=== PATIENT | male | born 1995 | race Caucasian/White ===

== ENCOUNTER → 2018-03-06 | Outpatient (CLI) | payer OTHER | LOC: M ADAMS 16:06 | DX: J20.9 Acute bronchitis, unspecified (principal) | CPT/HCPCS: 71046 ==

== ENCOUNTER 2018-05-18 23:47 | Emergency (ER) | payer SELFPAY, OTHER ==
[2018-05-19 00:39] LABS: KETONE, URINE AUTO RFX NEGATIVE (NEGATIVE); LEUKOCYTE ESTERASE UR AUTO RFX NEGATIVE (NEGATIVE); MUCUS, URINE RFX SMALL (NEGATIVE); NITRITE, URINE AUTO RFX NEGATIVE (NEGATIVE); RBC, URINE AUTO RFX 25 /HPF (0-3); SPECIFIC GRAVITY UR AUTO RFX 1.023 (1.002-1.035); SQUAM EPITHELIAL CELL UR AURFX 0 /HPF (0-6); WBC, URINE AUTO RFX 0 /HPF (0-3)
[2018-05-19] MEDS: NS 1,000 ML IV (00:45)
[2018-05-19 00:58] LABS: BASO % 0.2 % (0.0-1.0); EOS # 0.1 10^3/uL (0.0-0.50); EOS % 1.6 % (0.0-3.0); HEMATOCRIT 43.6 % (42.0-52.0); HEMOGLOBIN 15.2 g/dl (13.5-17.5); IMMATURE GRANULOCYTE % 0.1 % (0-3.0); LYMPH # 2.4 10^3/uL (1.5-6.5); LYMPH % 27.7 % (24.0-44.0); MEAN CORPUSCULAR HEMOGLOBIN 31.2 pg (27.0-33.0); MEAN CORPUSCULAR HGB CONC 34.9 g/dl (32.0-36.5); MEAN CORPUSCULAR VOLUME 89.5 fl (80.0-96.0); MONO # 0.7 10^3/uL (0.0-0.8); MONO % 8.2 % (0.0-5.0); NEUTROPHILS # 5.4 10^3/uL (1.8-7.7); NEUTROPHILS % 62.2 % (36.0-66.0); PLATELET COUNT, AUTOMATED 201 10^3/uL (150-450); RED BLOOD COUNT 4.87 10^6/uL (4.30-6.10); RED CELL DISTRIBUTION WIDTH 11.9 % (11.5-14.5); WHITE BLOOD COUNT 8.7 10^3/uL (4.0-10.0)
[2018-05-19 01:38] LABS: ALBUMIN 3.8 GM/DL (3.2-5.2); ALBUMIN/GLOBULIN RATIO 1.09 (1.00-1.93); ALKALINE PHOSPHATASE 70 U/L (45-117); ALT/SGPT 101 U/L (12-78); ANION GAP 7 MEQ/L (8-16); AST/SGOT 45 U/L (7-37); BILIRUBIN,DIRECT < 0.1 MG/DL (0.0-0.2); BILIRUBIN,TOTAL 0.2 MG/DL (0.2-1.0); BLOOD UREA NITROGEN 16 MG/DL (7-18); CALCIUM LEVEL 8.8 MG/DL (8.5-10.1); CARBON DIOXIDE LEVEL 27 MEQ/L (21-32); CHLORIDE LEVEL 107 MEQ/L (98-107); CREATININE FOR GFR 1.11 MG/DL (0.70-1.30); GLOMERULAR FILTRATION RATE > 60.0 (>60); GLUCOSE, FASTING 102 MG/DL (70-100); LIPASE 134 U/L (73-393); POTASSIUM SERUM 3.6 MEQ/L (3.5-5.1); SODIUM LEVEL 141 MEQ/L (136-145); TOTAL PROTEIN 7.3 GM/DL (6.4-8.2)
[2018-05-19 01:41] LABS: CONTROL LINE MONO INT CTR LINE PRESENT; MONO SCRN NEGATIVE (NEGATIVE)
== END 2018-05-19 02:15 | disposition home or self-care (01) ==
LOC: M ED 23:47
DX: R31.29 Other microscopic hematuria (principal); R10.9 Unspecified abdominal pain; J45.909 Unspecified asthma, uncomplicated; F32.9 Major depressive disorder, single episode, unspecified; Z84.1 Family history of disorders of kidney and ureter; Z88.1 Allergy status to other antibiotic agents; Z88.2 Allergy status to sulfonamides; Z79.899 Other long term (current) drug therapy
CPT/HCPCS: 74176

== ENCOUNTER → 2018-07-28 | Outpatient (CLI) | payer OTHER, SELFPAY ==
[2018-07-28 18:04] LABS: ALBUMIN 4.4 GM/DL (3.2-5.2); ALBUMIN/GLOBULIN RATIO 1.33 (1.00-1.93); ALKALINE PHOSPHATASE 61 U/L (45-117); ALT/SGPT 104 U/L (12-78); ANION GAP 6 MEQ/L (8-16); AST/SGOT 54 U/L (7-37); BILIRUBIN,TOTAL 0.6 MG/DL (0.2-1.0); BLOOD UREA NITROGEN 13 MG/DL (7-18); CALCIUM LEVEL 9.2 MG/DL (8.5-10.1); CARBON DIOXIDE LEVEL 30 MEQ/L (21-32); CHLORIDE LEVEL 106 MEQ/L (98-107); CHOLESTEROL LEVEL 164 MG/DL (<200); CHOLESTEROL RISK RATIO 3.346 (<5); CREATININE FOR GFR 0.96 MG/DL (0.70-1.30); GLOMERULAR FILTRATION RATE > 60.0 (>60); GLUCOSE, FASTING 84 MG/DL (70-100); HDL CHOLESTEROL 49 MG/DL (>40); LDL CHOLESTEROL 96.2 MG/DL (<100); NON-HDL-C 115 MG/DL; SODIUM LEVEL 142 MEQ/L (136-145); TOTAL PROTEIN 7.7 GM/DL (6.4-8.2); TRIGLYCERIDES LEVEL 94 MG/DL (<150)
== END ==
LOC: M WUC 10:15
DX: K76.0 Fatty (change of) liver, not elsewhere classified (principal); R94.5 Abnormal results of liver function studies
CPT/HCPCS: 80053

== ENCOUNTER 2018-10-25 09:52 | Emergency (ER) | payer OTHER | END 2018-10-25 10:56 | disposition home or self-care (01) | LOC: M ED 09:52 | DX: S89.92XA Unspecified injury of left lower leg, initial encounter (principal); Y92.89 Other specified places as the place of occurrence of the external cause; J45.909 Unspecified asthma, uncomplicated; F32.9 Major depressive disorder, single episode, unspecified; X50.0XXA Overexertion from strenuous movement or load, initial encounter | CPT/HCPCS: 73564 ==

== ENCOUNTER 2019-01-16 04:58 | Emergency (ER) | payer OTHER ==
[~2019-01-16] VITALS: Ht 175.3 cm; Wt 120.5 kg
[~2019-01-16 04:58] MED LIST: /CIPR75TA OR; ACET500C OR; BACT400T OR; CIPRODEX AD; CLAR5CHW OR; LORA10CA PO; NORCOTAB PO; PRED10TA2 OR; TUSSIN CF PO
--- NOTE | 2019-01-16 09:08 | REP ---
CT Head without contrast HISTORY: Trauma COMPARISON: 12/09/2014 There is no intraparenchymal hemorrhage, acute infarct, mass or midline shift. The ventricular system is normal in appearance. There is no extra cerebral collection. There is no fracture. The visualized sinuses are clear. IMPRESSION: There is no intracranial lesion. Electronically Signed by Mat Posey MD 01/16/2019 08:59 A
--- NOTE | 2019-01-16 09:12 | REP ---
CT cervical spine without contrast HISTORY: Trauma COMPARISON: None There is no acute fracture or subluxation. There is no disc bulge or herniation. The spinal canal and neural foramina are patent. The intervertebral discs and vertebral bodies are normal in height. IMPRESSION: There is no acute fracture or subluxation. Electronically Signed by Mat Posey MD 01/16/2019 09:03 A
--- NOTE | 2019-01-16 09:32 | REP ---
CT INTERNAL AUDITORY CANALS WITHOUT CONTRAST: HISTORY: Right hemotympanum. The internal auditory canals, cochlea, vestibules, and semicircular canals are normal in appearance. There is no carotid canal or jugular bulb dehiscence. The ossicles are normal in configuration and position. The scutum and tegmen are intact. The middle ear cavities and right mastoid air cells are clear. Minimal mucosal thickening is present in the inferior left mastoid air cells. The nasopharynx is normal in appearance. The visualized sinuses are clear. IMPRESSION: Minimal left mastoid mucosal thickening. Electronically Signed by Mat Posey MD 01/16/2019 10:05 A
[2019-01-16 09:39] VITALS: BP 118/62
== END 2019-01-16 09:43 | disposition home or self-care (01) ==
LOC: M ED 04:58
DX: S00.81XA Abrasion of other part of head, initial encounter (principal); W22.8XXA Striking against or struck by other objects, initial encounter; Y92.89 Other specified places as the place of occurrence of the external cause; Y99.0 Civilian activity done for income or pay; H74.8X1 Other specified disorders of right middle ear and mastoid; Z88.1 Allergy status to other antibiotic agents; Z88.2 Allergy status to sulfonamides; Z88.8 Allergy status to other drugs, medicaments and biological substances

== ENCOUNTER → 2019-04-09 | Outpatient (REF) | payer OTHER ==
[~2019-04-09] MED LIST changes: +HYDR-3715 PO; -NORCOTAB PO
[2019-04-09 19:24] LABS: ALBUMIN 3.8 GM/DL (3.2-5.2); ALT/SGPT 119 U/L (12-78); BILIRUBIN,TOTAL 0.3 MG/DL (0.2-1.0); BLOOD UREA NITROGEN 14 MG/DL (7-18); CALCIUM LEVEL 8.9 MG/DL (8.5-10.1); CARBON DIOXIDE LEVEL 29 MEQ/L (21-32); CHLORIDE LEVEL 104 MEQ/L (98-107); CREATININE FOR GFR 0.98 MG/DL (0.70-1.30); GLOMERULAR FILTRATION RATE > 60.0 (>60); GLUCOSE, FASTING 90 MG/DL (70-100); POTASSIUM SERUM 4.2 MEQ/L (3.5-5.1); SODIUM LEVEL 141 MEQ/L (136-145); TOTAL PROTEIN 7.4 GM/DL (6.4-8.2)
== END ==
LOC: M LABDRAW1 15:39
PROVIDERS: ATTEND Nurse Practitioner Family
DX: R94.5 Abnormal results of liver function studies (principal)

== ENCOUNTER → 2020-02-24 | Outpatient (REF) | payer OTHER | LOC: M LAB REF 19:11 | PROVIDERS: ATTEND Physician Assistant | DX: J02.9 Acute pharyngitis, unspecified (principal) ==

== ENCOUNTER → 2021-04-07 | Outpatient (CLI) | payer BC, OTHER ==
--- NOTE | 2021-04-08 07:28 | REP ---
INDICATION: RT TESTICULAR CALCIFICATION COMPARISON: 04/09/2019 TECHNIQUE: Negron scale and color Doppler evaluation using linear and curved array transducer with color Doppler evaluation. FINDINGS: The testicles and epididymi are relatively normal in contour, size, echogenicity, vascularity and overall appearance. Small bilateral epididymal head cysts are again noted measuring 2 mm on the right and 3 mm on the left. Small testicular calcifications (right greater than left) again noted and unchanged. There is no evidence for intratesticular mass lesion, infectious/inflammatory process, or torsion. No obvious hydroceles or varicoceles are identified. Right testicle measures 3.9 x 1.7 x 2.8 cm. Left testicle measures 4.2 x 1.6 x 2.5 cm. IMPRESSION: Right parenchymal calcification and smaller punctate calcifications remains stable. No testicular mass lesion. No significant abnormality. <Electronically signed by Sky Zaman > 04/08/21 0717
== END ==
LOC: M RAD 11:58
PROVIDERS: ATTEND Family Medicine
DX: N50.89 Other specified disorders of the male genital organs (principal)

== ENCOUNTER 2021-09-24 12:43 | Outpatient (CLI) | payer BC, OTHER ==
[~2021-09-24] VITALS: Ht 175.3 cm; Wt 117.9 kg
[~2021-09-24 12:43] MED LIST changes: +ALBUTEROL 90 MCG/ACT 8GM HFA INHALER INH PRN; +ALBUTEROL SULFATE 2.5 MG/0.5 ML INH NEB SOLN INH PRN; +EPINEPHrine INJ 1 MG/ML 1ML AMP IM PRN; +NS 1,000 ML IV SCH; +diphenhydrAMINE 50MG/ML VIAL (J1200) IV PRN; +methylPREDNISolone 125MG 2ML VIAL IV PRN
[2021-09-24] MEDS ORDERED: ACETAMINOPHEN TAB 650MG DOSE (2X325MG) PO ONE (13:00)
[2021-09-24] MEDS ORDERED: CASIRIVIMAB (REGN10933) 600 MG, IMDEVIMAB (REGN10987) 600 MG in NS 250 ML IV ONE (13:00)
[2021-09-24 13:50] VITALS: BP 125/66
[2021-09-24 14:20] VITALS: BP 141/64
[2021-09-24 15:00] VITALS: BP 127/62
[2021-09-24 16:00] VITALS: BP 138/62
== END 2021-09-24 16:00 | disposition home or self-care (01) ==
LOC: M OPCLI4PR 12:43
PROVIDERS: ATTEND Family Medicine
DX: U07.1 COVID-19 (principal); Z88.1 Allergy status to other antibiotic agents; Z88.2 Allergy status to sulfonamides

== ENCOUNTER 2021-09-25 20:49 | Emergency (ER) | payer BC, OTHER ==
[~2021-09-25] VITALS: Ht 175.3 cm; Wt 115.7 kg
[~2021-09-25 20:49] MED LIST changes: -ALBUTEROL 90 MCG/ACT 8GM HFA INHALER INH PRN; -ALBUTEROL SULFATE 2.5 MG/0.5 ML INH NEB SOLN INH PRN; -EPINEPHrine INJ 1 MG/ML 1ML AMP IM PRN; -NS 1,000 ML IV SCH; -diphenhydrAMINE 50MG/ML VIAL (J1200) IV PRN; -methylPREDNISolone 125MG 2ML VIAL IV PRN
[2021-09-25 20:50] VITALS: BP 137/95
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
--- OUTSIDE RECORDS SUMMARY | 2021-09-25 20:55 | CCD ---
Author Author [facility] Organization [facility] Address Unknown Phone Unavailable Care Team Providers Care Manager Digital Name Role Phone Wiliam ROBLES NP Unavailable Unavailable LAROCKWiliam NP Unavailable Unavailable LAROCKWiliam NP Unavailable Unavailable LAROCKWiliam NP Unavailable Unavailable LAROCKWiliam NP Unavailable Unavailable LAROCKWiliam NP Unavailable Unavailable LAROCKWiliam NP Unavailable Unavailable LAROCKWiliam NP Unavailable Unavailable LAROCKWiliam NP Unavailable Unavailable LAROCKWiliam NP Unavailable Unavailable LAROCKWiliam NP Unavailable Unavailable LAROCKWiliam NP Unavailable Unavailable LAROCKWiliam NP Unavailable Unavailable LAROCKWiliam NP Unavailable Unavailable LAROCKWiliam NP Unavailable Unavailable LAROCKWiliam NP Unavailable Unavailable LAROCKWiliam NP Unavailable Unavailable LAROCKWiliam NP Unavailable Unavailable LAROCKWiliam NP Unavailable Unavailable LAROCKWiliam NP Unavailable Unavailable LAROCKWiliam NP Unavailable Unavailable LAROCKWiliam NP Unavailable Unavailable Mike Thomas MD Unavailable Unavailable Mike Thomas MD Unavailable Unavailable Mike Thomas MD Unavailable Unavailable Mike Thomas MD Unavailable Unavailable Mike Thomas MD Unavailable Unavailable Mike Thomas MD Unavailable Unavailable Mike Thomas MD Unavailable Unavailable Mike Thomas MD Unavailable Unavailable Mike Thomas MD Unavailable Unavailable Mike Thomas MD Unavailable Unavailable Mike Thomas MD Unavailable Unavailable Mike Thomas MD Unavailable Unavailable Mike Thomas MD Unavailable Unavailable Mike Thomas MD Unavailable Unavailable Mike Thomas MD Unavailable Unavailable Mike Thomas MD Unavailable Unavailable Mike Thomas MD Unavailable Unavailable Mike Thomas MD Unavailable Unavailable Mike Thomas MD Unavailable Unavailable Mike Thomas MD Unavailable Unavailable Mike Thomas MD Unavailable Unavailable Mike Thomas MD Unavailable Unavailable Mike Thomas MD Unavailable Unavailable Mike Thomas MD Unavailable Unavailable Mike Thomas MD Unavailable Unavailable GinnyeranIsidro Em PA Unavailable [phone] HolleranIsidro Em PA Unavailable [phone] Coats, M Christopher PA-C Unavailable Unavailable Coats, M Christopher PA-C Unavailable Unavailable Coats, M Christopher PA-C Unavailable Unavailable Coats, M Christopher PA-C Unavailable Unavailable Coats, M Christopher PA-C Unavailable Unavailable Coats, M Christopher PA-C Unavailable Unavailable Coats, M Christopher PA-C Unavailable Unavailable Coats, M Christopher PA-C Unavailable Unavailable Coats, M Christopher PA-C Unavailable Unavailable Coats, M Christopher PA-C Unavailable Unavailable Coats, M Christopher PA-C Unavailable Unavailable Coats, M Christopher PA-C Unavailable Unavailable Coats, M Christopher PA-C Unavailable Unavailable Coats, M Christopher PA-C Unavailable Unavailable Coats, M Christopher PA-C Unavailable Unavailable Coats, M Christopher PA-C Unavailable Unavailable Coats, M Christopher PA-C Unavailable Unavailable Coats, M Christopher PA-C Unavailable Unavailable Coats, M Christopher PA-C Unavailable Unavailable Coats, M Christopher PA-C Unavailable Unavailable Coats, M Christopher PA-C Unavailable Unavailable Coats, M Christopher PA-C Unavailable Unavailable Coats, M Christopher PA-C Unavailable Unavailable Coats, M Christopher PA-C Unavailable Unavailable Coats, M Christopher PA-C Unavailable Unavailable Coats, M Christopher PA-C Unavailable Unavailable Re-disclosure Warning The records that you are about to access may contain information from federally-assisted alcohol or drug abuse programs. If such information is present, then the following federally mandated warning applies: This information has been disclosed to you from records protected by federal confidentiality rules (42 CFR part 2). The federal rules prohibit you from making any further disclosure of this information unless further disclosure is expressly permitted by the written consent of the person to whom it pertains or as otherwise permitted by 42 CFR part 2. A general authorization for the release of medical or other information is NOT sufficient for this purpose. The Federal rules restrict any use of the information to criminally investigate or prosecute any alcohol or drug abuse patient.The records that you are about to access may contain highly sensitive health information, the redisclosure of which is protected by Article 27-F of the [facility] Public Health law. If you continue you may have access to information: Regarding HIV / AIDS; Provided by facilities licensed or operated by the [facility] Office of Mental Health; or Provided by the [facility] Office for People With Developmental Disabilities. If such information is present, then the following [facility] mandated warning applies: This information has been disclosed to you from confidential records which are protected by state law. State law prohibits you from making any further disclosure of this information without the specific written consent of the person to whom it pertains, or as otherwise permitted by law. Any unauthorized further disclosure in violation of state law may result in a fine or senior care sentence or both. A general authorization for the release of medical or other information is NOT sufficient authorization for further disc losure. Family History Family Member Name Family Member Gender Family Member Status Date o f Status Description Data Source(s) Unknown Unknown Problem MEDENT ([facility]) Unknown Unknown Problem MEDENT ([facility]) Unknown Male Problem MEDENT ([facility]) Unknown Male Problem MEDENT ([facility]) Encounters Encounter Providers Location Date Indications Data Source(s ) Unknown [address] [facility] [address] 09/21/2021 12:00:00 AM EDT eCW1 (formerly [facility]) Outpatient Attender: Em DENSON 11/2020 10:35:13 AM EDT - 09/20/2021 12:10:29 PM EDT [facility] ([facility]) Outpatient Attender: Tawana Thomas MD 1 04:45:37 PM EDT - 08/21/2021 06:06:38 PM EDT [facility] ([facility]) Outpatient Attender: Thanh Coats PA-C 07/07/2021 04:54:02 PM EDT - 07/07/2021 05:47:37 PM EDT [facility] ([facility]) Unknown [address] [facility] [address] 06/15/2021 12:00:00 AM EDT eCW1 (formerly [facility]) Outpatient [address] [facility] [address] 05/03/2021 12:00:00 AM EDT eCW1 (formerly [facility]) Unknown [address] [facility] [address] 04/26/2021 12:00:00 AM EDT eCW1 (formerly [facility]) Outpatient [address] [facility] [address] 03/09/2021 12:00:00 AM EDT eCW1 (formerly [facility]) Outpatient Attender: MARCELINO ROBLES NP 05/2021 10:11:54 AM EST - 12/27/2020 11:11:12 AM EST [facility] ([facility] ) Outpatient [address] [facility] [address] 12/15/2020 12:00:00 AM EST eCW1 (formerly [facility]) Outpatient [address] [facility] [address] 09/02/2020 12:00:00 AM EDT eCW1 (formerly [facility]) Immunizations Vaccine Date Status Description Data Source(s) influenza, recombinant, quadrIvalent,injectable, prese rvative free 09/02/2020 03:47:00 PM EDT completed eCW1 ([facility]) influenza, recombinant, quadrIvalent,injectable, prese rvative free 09/02/2020 03:47:00 PM EDT completed eCW1 ([facility]) influenza, recombinant, quadrIvalent,injectable, prese rvative free 09/02/2020 03:47:00 PM EDT completed eCW1 ([facility]) influenza, recombinant, quadrIvalent,injectable, prese rvative free 09/02/2020 03:47:00 PM EDT completed eCW1 ([facility]) influenza, recombinant, quadrIvalent,injectable, prese rvative free 09/02/2020 03:47:00 PM EDT completed eCW1 ([facility]) influenza, recombinant, quadrIvalent,injectable, prese rvative free 09/02/2020 03:47:00 PM EDT completed eCW1 ([facility]) influenza, recombinant, quadrIvalent,injectable, prese rvative free 09/02/2020 03:47:00 PM EDT completed eCW1 ([facility]) Medications Medication Brand Name Start Date Product Form Dose Route Admi nistrative Instructions Pharmacy Instructions Status Indications Reaction Description Data Source(s) Cyclobenzaprine hydrochloride 10 MG Oral Tablet CYCLOBENZAPR INE HCL 07/07/2021 12:00:00 AM EDT tablet 21 TAKE ONE TABLET BY MOUTH THREE TIMES A DAY NEEDED FOR 7 DAYS TAKE ONE TABLET BY MOUTH THREE TIMES A DAY NEEDED F OR 7 DAYS SOLD: 07/07/2021 [facility] 875 mg 12/12/2020 12:00:00 AM EST tablet 20 TAKE ONE TABLET BY MOUTH TWICE A DAY FOR 10 DAYS TAKE ONE TABLET BY MOUTH TWICE A DAY FOR 10 DAYS SOLD: 12/12/2020 [facility] Insurance Providers Payer name Policy type / Coverage type Policy ID Covered republican ID Covered republican's relationship to ochoa Policy O[place] Plan Information [id number] [facility] AMY [id number] [employer] Workers Compensation [id number] Self [id number] [employer] Workers Compensation [id number] Self [id number] [facility] Workers Compensation [id number] Self [id number] [facility]) Workers Compensation [id number] Self 7 [facility] Workers Compensation [id number] Self [id number] [facility] Workers Compensation [id number] Self 7 [facility]) Workers Compensation [id number] Self 7 [facility] Workers Compensation [id number] Self [id number] [facility]) Workers Compensation [id number] Self [id number] [facility]) Workers Compensation [id number] Self [id number] [facility] [employer] [id number] Self [id number] [facility] Commercial Insurance Co. [id number] Self [id number] [facility] [id number] SP [id number] BS CHP (DO Not Use) Health Maintenance Organization ([facility]) [id number] Family Dependent Z [id number] BS CHP (DO Not Use) Health [facility] Organization ([facility]) [id number] Family Dependent Z [id number] [employer] Health Maintenance Organization ([facility]) [id number] Self [id number] [employer] Health Maintenance Organization ([facility]) [id number] Family Dependent [id number] [employer] [id number] SP [id number] BS CHP (DO Not Use) Health Maintenance Organization ([facility]) [id number] Family Dependent Z [id number] BS CHP (DO Not Use) Health [facility] Organization ([facility]) [id number] Family Dependent Z [id number] BS CHP (DO Not Use) Health Maintenance Organization ([facility]) [id number] Family Dependent Z [id number] BS CHP (DO Not Use) Health Maintenance Organization ([facility]) [id number] Family Dependent Z [id number] [employer] O [id number] S [id number] OTHER W.C.EMPLOYER O [id number] O [id number] [employer] [id number] SP [id number] [facility] [id number] SP [id number] UN COMMUNITY PL[employer] [facility] [id number] SP [id number] SELF PAY ONLY [id number] SP [id number] [facility]) O [id number] S [id number] [facility] Maintenance Organization ([facility]) [id number] Self [id number] [facility] Health Maintenance [facility] ([facility]) [id number] Self [id number] [facility] [id number] SP [id number] [facility] [id number] SP [id number] [facility] PHY [id number] SP [id number] EXCELLUS BCBS P [id number] C VYB [id number] BC/BS OF [place] P [id number] C VY [id number] [facility] Health Maintenance Organization ([facility]) [id number] Self [id number] BC[employer] DIV [id number] SP [id number] [facility] BLUE [id number] SP [id number] [facility] [id number] SP [id number] [facility] [id number] SP [id number] [facility] [id number] SP [id number] MVP MCDO [id number] SP [id number] BS CHP (DO Not Use) Health Maintenance Organization (O) [id number] Family Dependent [id number] MV Health Maintenance Organization (O) [id number] Self [id number] MVP Health Maintenance Organization (HMO) [id number] Family Dependent [id number] [employer] [id number] Self [id number] BS CHP (DO Not Use) Health Maintenance Organization (HMO) [id number] Family Dependent [id number] [facility] INSURANCE FUND [id number] [employer] Commercial [id number] Self [id number] Problems, Conditions, and Diagnoses Code Display Name Description Problem Type Effective Dates Data Source(s) J35.8 [id number] Tonsil stone Problem 03/09/2021 12:00:00 AM EDT eCW1 ([facility]) Surgeries/Procedures Procedure Description Date Indications Data Source(s) Immunization: Flublok Quadrivalent (18 years & older) 0.5mL IM (Influenza) 09/02/2020 12:00:00 AM EDT eCW1 ([facility]) Results ID Date Data Source [id number] 09/20/2021 10:45:00 AM EDT [facility] Name Value Range Interpretation Code Description Data Shaye rce(s) Supporting Document(s) SARS-CoV-2 RNA Resp Ql JASPER+probe DETECTED [facility] This lab was ordered by SAGRARIO haskins and reported by SAGRARIO Walker. ID Date Data Source [id number] 09/17/2021 01:00:00 PM EDT [facility] Name Value Range Interpretation Code Description Data Shaye rce(s) Supporting Document(s) SARS coronavirus 2 RNA [Presence] in Res piratory specimen by JASPER with probe detection Not detected [facility] This lab was ordered by [facility] and re ported by [facility]. ID Date Data Source [id number] 09/19/2021 02:45:00 AM EDT [employer] [facility] Name Value Range Interpretation Code Description Data Shaye rce(s) Supporting Document(s) [id number] NOT DETECTED [facility] A Not Detected (negative) test result fo r this testmeans that SARS- CoV-2 RNA was not present in the specimenabove the limit of detection. A negative result does notrule out the possibility of COVID-19 and should not beused as the sole basis for treatment or patient managementdecisions. If COVID-19 is still suspected, based onexposure history together with other clinical findings,re- testing should be considered [facility]. Laboratory test results shouldalways be considered in the context of clinicalobservations and epidemiological data in making a finaldiagnosis and patient management decisions.Specimens that are self-collected were not tested withan internal control to confirm that the specimen wasproperly collected. As such, unobserved self-collectedspecimens from SARS-CoV-2 positive individuals may yieldnegative results if the specimen was not collected properly.Please review the "Fact Sheets" and FDA authorizedlabeling available for health care pr oviders andpatients using the following websites:[facility]/home/Covid-19/HCP/lu-futq-rrhi-wnnvj0UrjqaGmrlfmey ics.[employer]/home/Covid-19/Patients/vg-akjp-ujnf-radfn0Cwas test has been authorized by the FDA under anEmergency Use Authorization (EUA) for use by authorizedlaboratories.Methodology: Nucleic Acid Amplification Test (NAAT)includes RT-PCR or TMA ID Date Data Source [id number] 09/17/2021 06:00:00 AM [facility] Name Value Range Interpretation Code Description Data Shaye rce(s) Supporting Document(s) SARS-COV-2 RNA RESP QL JASPER+PROBE Not detected [facility] This lab was ordered by [facility] Employee Cov id and reported by [employer] [place]. ID Date Data Source [id number] 09/10/2021 07:00:00 AM EDT [facility] Name Value Range Interpretation Code Description Data Shaye rce(s) Supporting Document(s) SARS coronavirus 2 RNA [Presence] in Res piratory specimen by JASPER with probe detection Not detected [facility] This lab was ordered by [facility] and re ported by [facility]. ID Date Data Source [id number] 09/10/2021 12:00:00 AM EDT [facility] Name Value Range Interpretation Code Description Data Shaye rce(s) Supporting Document(s) SARS-COV-2 RNA RESP QL JASPER+PROBE Not detected [facility] This lab was ordered by [facility] Employee Cov id and reported by [employer] [place]. ID Date Data Source [id number] 09/12/2021 12:56:00 PM EDT [facility] Name Value Range Interpretation Code Description Data Shaye rce(s) Supporting Document(s) [id number] NOT DETECTED [facility] A Not Detected (negative) test result fo r this testmeans that SARS- CoV-2 RNA was not present in the specimenabove the limit of detection. A negative result does notrule out the possibility of COVID-19 and should not beused as the sole basis for treatment or patient managementdecisions. If COVID-19 is still suspected, based onexposure history together with other clinical findings,re- testing should be considered [facility]. Laboratory test results shouldalways be considered in the context of clinicalobservations and epidemiological data in making a finaldiagnosis and patient management decisions.Specimens that are self-collected were not tested withan internal control to confirm that the specimen wasproperly collected. As such, unobserved self-collectedspecimens from SARS-CoV-2 positive individuals may yieldnegative results if the specimen was not collected properly.Please review the "Fact Sheets" and FDA authorizedlabeling available for health care pr oviders andpatients using the following websites:[facility] [employer]/home/Covid-19/HCP/fe-ifkr-pjar-iocqc5NtfctZtobwpbk ics.[employer]/home/Covid-19/Patients/xh-lsyi-aids-tncph1Wwtw test has been authorized by the FDA under anEmergency Use Authorization (EUA) for use by authorizedlaboratories.Methodology: Nucleic Acid Amplification Test (NAAT)includes RT-PCR or TMA ID Date Data Source [id number] 08/21/2021 05:45:00 PM EDT [facility] Name Value Range Interpretation Code Description Data Shaye rce(s) Supporting Document(s) SARS-CoV-2 RNA Resp Ql JASPER+probe NOT DETECTED [facility] This lab was ordered by SAGRARIO haskins and reported by SAGRARIO Walker. ID Date Data Source [id number] 12/27/2020 12:00:00 AM EST [facility] Name Value Range Interpretation Code Description Data Shaye rce(s) Supporting Document(s) SARS coronavirus 2 RNA [Presence] in Res piratory specimen by JASPER with probe detection NEGATIVE [facility] This lab was ordered by Aaron Cobb and reported by [facility]. ID Date Data Source [id number] 12/27/2020 12:00:00 AM EST [facility] Name Value Range Interpretation Code Description Data Shaye rce(s) Supporting Document(s) Carestart Rapid COVID Antigen Test Negative [facility] This lab was reported by [facility] [place]. Procedure Social History Code Duration Value Status Description Data Source(s ) Smoking 09/06/2021 12:00:00 AM EDT Never Smoker completed Never S moker eCW1 ([facility]) Smoking 05/03/2021 12:00:00 AM EDT Never Smoker completed Never S moker eCW1 ([facility]) Smoking 05/03/2021 12:00:00 AM EDT Never Smoker completed Never S moker eCW1 ([facility]) Smoking 03/09/2021 12:00:00 AM EDT Never Smoker completed Never S moker eCW1 ([facility]) Smoking 03/09/2021 12:00:00 AM EDT Never Smoker completed Never S moker eCW1 ([facility]) Smoking 12/15/2020 12:00:00 AM EST Never Smoker completed Never S moker eCW1 ([facility]) Smoking 09/02/2020 12:00:00 AM EDT Never Smoker completed Never S moker eCW1 ([facility]) Vital Signs ID Date Data Source UNK Name Value Range Interpretation Code Description Data Source(s) Body weight 250 [lb_av] 250 [lb_av] eCW1 ([facility]) Body height 69 [in_i] 69 [in_i] eCW1 ([facility]) Body mass index (BMI) [Ratio] 36.91 kg/m2 36.91 kg/m2 eCW1 ([facility]) Heart rate 65 /min 65 /min eCW1 ([facility]) Respiratory rate 18 /min 18 /min eCW1 ([facility]) Body temperature 97.0 [degF] 97.0 [degF] eCW1 ( [facility]) Systolic blood pressure 133 mm[Hg] 133 mm[Hg] e CW1 ([facility]) Diastolic blood pressure 65 mm[Hg] 65 mm[Hg] eCW1 ([facility]) Body mass index (BMI) [Ratio] 37.65 kg/m2 37.65 kg/m2 eCW1 ([facility]) Body weight 255 [lb_av] 255 [lb_av] eCW1 ([facility]) Body height 69 [in_i] 69 [in_i] eCW1 ([facility]) Heart rate 83 /min 83 /min eCW1 ([facility]) Respiratory rate 17 /min 17 /min eCW1 ([facility]) Body temperature 97.9 [degF] 97.9 [degF] eCW1 ( [facility]) Systolic blood pressure 121 mm[Hg] 121 mm[Hg] e CW1 ([facility]) Diastolic blood pressure 81 mm[Hg] 81 mm[Hg] eCW1 ([facility]) Body weight 269 [lb_av] 269 [lb_av] eCW1 ([facility]) Body height 69 [in_i] 69 [in_i] eCW1 ([facility]) Body mass index (BMI) [Ratio] 39.72 kg/m2 39.72 kg/m2 eCW1 ([facility]) Heart rate 76 /min 76 /min eCW1 ([facility]) Respiratory rate 16 /min 16 /min eCW1 ([facility]) Body temperature 97.5 [degF] 97.5 [degF] eCW1 ( [facility]) Systolic blood pressure 148 mm[Hg] 148 mm[Hg] e CW1 ([facility]) Diastolic blood pressure 77 mm[Hg] 77 mm[Hg] eCW1 ([facility]) Body weight 245 [lb_av] 245 [lb_av] eCW1 ([facility]) Respiratory rate 18 /min 18 /min eCW1 ([facility]) Body height 69 [in_i] 69 [in_i] eCW1 ([facility]) Body temperature 97.6 [degF] 97.6 [degF] eCW1 ( [facility]) Systolic blood pressure 133 mm[Hg] 133 mm[Hg] e CW1 ([facility]) Diastolic blood pressure 81 mm[Hg] 81 mm[Hg] eCW1 ([facility]) Body mass index (BMI) [Ratio] 36.18 kg/m2 36.18 kg/m2 eCW1 ([facility]) Heart rate 91 /min 91 /min eCW1 ([facility])
--- OUTSIDE RECORDS SUMMARY | 2021-09-26 00:33 | CCD ---
Author Author [facility] Organization [facility] Address Unknown Phone Unavailable Care Team Providers Care Medical Technician Assistant Name Role Phone Wiliam ROBLES NP Unavailable [...] MD Unavailable Unavailable GinnyeranIsidro Em PA Unavailable [phone] HolleranIsidro Em PA Unavailable [phone] Coats, M Christopher PA-C Unavailable Unavailable Coats, [...] Unavailable Coats, M Christopher PA-C Unavailable Unavailable Cotas, M Christopher PA-C Unavailable Unavailable Coats, M [...] is protected by Article 27-F of the [facility] Public Health law. If you continue you may have access to information: Regarding HIV / AIDS; Provided by facilities licensed or operated by the [facility] Office of Mental Health; or Provided by the [facility] Office for People With Developmental Disabilities. If such information is present, then the following [facility] mandated warning applies: This information has been [...] law may result in a fine or alf sentence or both. A general authorization for the release of medical or other information is NOT sufficient authorization for further disc losure. Family History Family Member Name Family Member Gender Family Member Status Date o f Status Description Data Source(s) Unknown Unknown Problem MEDENT ([facility]) Unknown Unknown Problem MEDENT ([facility]) Unknown Male Problem MEDENT ([facility]) Unknown Male Problem MEDENT ([facility]) Encounters Encounter Providers Location Date Indications Data Source(s ) [place] [address] [address] 09/21/2021 12:00:00 AM EDT eCW1 ([facility]) Outpatient Attender: Em DENSON 11/2020 10:35:13 AM EDT - 09/20/2021 12:10:29 PM EDT [facility] ([facility]) Outpatient Attender: Tawana Thomas MD 1 04:45:37 PM EDT - 08/21/2021 06:06:38 PM EDT [facility] ([facility]) Outpatient Attender: Thanh Coats PA-C 07/07/2021 04:54:02 PM EDT - 07/07/2021 05:47:37 PM EDT [facility] ([facility]) [place] [address] [address] 06/15/2021 12:00:00 AM EDT eCW1 ([facility]) [place] [address] [address] 05/03/2021 12:00:00 AM EDT eCW1 ([facility]) [place] [address] [address] 04/26/2021 12:00:00 AM EDT eCW1 ([facility]) [place] [address] [address] 03/09/2021 12:00:00 AM EDT eCW1 ([facility]) Outpatient Attender: MARCELINO ROBLES NP 05/2021 10:11:54 AM EST - 12/27/2020 11:11:12 AM EST [facility] ([facility] ) [place] [address] [address] 12/15/2020 12:00:00 AM EST eCW1 ([facility]) [place] [address] [address] 09/02/2020 12:00:00 AM EDT eCW1 ([facility]) Immunizations Vaccine Date Status Description Data Source(s) influenza, recombinant, quadrIvalent,injectable, prese rvative free 09/02/2020 03:47:00 PM EDT completed eCW1 ([facility]) influenza, recombinant, quadrIvalent,injectable, prese rvative free 09/02/2020 03:47:00 PM EDT completed eCW1 ([facility]) influenza, recombinant, quadrIvalent,injectable, prese rvative free 09/02/2020 03:47:00 PM EDT completed eCW1 ([facility]) influenza, recombinant, quadrIvalent,injectable, prese rvative free 09/02/2020 03:47:00 PM EDT completed eCW1 ([facility]) influenza, recombinant, quadrIvalent,injectable, prese rvative free 09/02/2020 03:47:00 PM EDT completed eCW1 ([facility]) influenza, recombinant, quadrIvalent,injectable, prese rvative free 09/02/2020 03:47:00 PM EDT completed eCW1 ([facility]) influenza, recombinant, quadrIvalent,injectable, prese rvative free 09/02/2020 03:47:00 PM EDT completed eCW1 ([facility]) Medications Medication Brand Name Start Date Product [...] type / Coverage type Policy ID Covered democrat ID Covered democrat's relationship to ochoa Policy Ochoa Plan Information [id number] [facility] [place] [id number] [employer] Compensation [id number] Self [id number] [employer] Workers Compensation [id number] Self [id number] [facility] Workers Compensation [id number] Self [id number] [facility]) Workers Compensation [id number] Self 7 [facility] Workers Compensation [id number] Self [id number] [facility] Workers Compensation [id number] Self 7 [facility]) Workers Compensation [id number] Self 7 [facility] Workers Compensation [id number] Self [id number] [facility]) Workers Compensation [id number] Self [id number] [facility]) Workers Compensation [id number] Self [id number] [facility] [employer]. [id number] Self [id number] [facility] Commercial Insurance Co. [id number] Self [id number] [facility] [id number] SP [id number] BS CHP (DO Not Use) Health Maintenance Organization ([facility] [id number] Family Dependent Z [id number] BS CHP (DO Not Use) Health [facility] Organization ([facility] [id number] Family Dependent Z [id number] [facility] Health Maintenance Organization ([facility] [id number] Self [id number] [facility] Health Maintenance Organization ([facility] [id number] Family Dependent [id number] [employer] [id number] SP [id number] BS CHP (DO Not Use) Health Maintenance Organization ([facility] [id number] Family Dependent Z [id number] BS CHP (DO Not Use) Health [facility] Organization ([facility] [id number] Family Dependent Z [id number] BS CHP (DO Not Use) Health Maintenance Organization ([facility] [id number] Family Dependent Z [id number] BS CHP (DO Not Use) Health Maintenance Organization ([facility] [id number] Family Dependent Z [id number] [employer] O [id number] S [id number] OTHER W.C.EMPLOYER O [id number] O [id number] [employer] [id number] SP [id number] MVP [facility] [id number] SP [id number] [employer] [facility] [id number] SP [id number] SELF PAY ONLY [id number] SP [id number] [facility](MCA[facility]) O [id number] S [id number] [facility]ly [facility] Maintenance Organization ([facility]) [id number] Self [id number] [facility] Health Maintenance [facility] ([facility]) [id number] Self [id number] [facility] [id number] SP [id number] [facility] [id number] SP [id number] [facility] PHY [id number] SP [id number] EXCELLUS BCBS P [id number] C [id number] [id number] BC/BS OF [place] P [id number] C VY [id number] [facility] Health Maintenance Organization ([facility] [id number] Self [id number] BCBS EMPIRE [employer] DIV [id number] SP [id number] [facility] BLUE [id number] SP [id number] [facility] [id number] SP [id number] [facility] [id number] SP [id number] [facility] [id number] SP [id number] MVP MCDO [id number] SP [id number] BS CHP (DO Not Use) Health Maintenance Organization (O) [id number] Family Dependent [id number] MV Health Maintenance Organization (O) [id number] Self [id number] MVP Health Maintenance Organization (HMO) [id number] Family Dependent [id number] [employer] Commercial [id number] Self [id number] BS CHP (DO Not Use) Health Maintenance Organization (HMO) [id number] Family Dependent [id number] [facility]LY [facility] INSURANCE FUND [id number] [facility] Commercial [id number] Self [id number] Problems, Conditions, and Diagnoses Code Display Name Description Problem Type Effective Dates Data Source(s) J35.8 [id number] Tonsil stone Problem 03/09/2021 12:00:00 AM EDT eCW1 ([facility]) Surgeries/Procedures Procedure Description Date Indications Data Source(s) Immunization: Flublok Quadrivalent (18 years & older) 0.5mL IM (Influenza) 09/02/2020 12:00:00 AM EDT eCW1 ([facility]) Results ID Date Data Source [id number] 09/20/2021 10:45:00 AM EDT [facility] Name Value Range Interpretation Code Description Data Shaye rce(s) Supporting Document(s) SARS-CoV-2 RNA Resp Ql JASPER+probe DETECTED [facility] This lab was ordered by SAGRARIO haskins and reported by SAGRARIO Walker. ID Date Data Source [id number] 09/17/2021 01:00:00 PM EDT [facility] Name Value Range Interpretation Code Description Data Shaye rce(s) Supporting Document(s) SARS coronavirus 2 RNA [Presence] in Res piratory specimen by JASPER with probe detection Not detected [facility] This lab was ordered by [facility] and re ported by [facility]. ID Date Data Source [id number] 09/19/2021 02:45:00 AM EDT [facility] Name Value Range Interpretation Code Description Data Shaye rce(s) Supporting Document(s) [id number] NOT DETECTED [facility] A Not Detected [...] findings,re- testing should be considered in [facility]. Laboratory test results shouldalways [...] care pr oviders andpatients using the following websites:[facility]/home/Covid-19/HCP/mh-itxk-rbtc-ftirz7NudrlOhgjmndx ics.[employer]/home/Covid-19/Patients/ct-fppv-ipbe-ocsbe1Qmdf test has been authorized by the FDA under anEmergency Use Authorization (EUA) for use by authorizedlaboratories.Methodology: Nucleic Acid Amplification Test (NAAT)includes RT-PCR or TMA ID Date Data Source [id number] 09/17/2021 06:00:00 AM [facility]T [facility] Name Value Range Interpretation Code Description Data Shaye rce(s) Supporting Document(s) SARS-COV-2 RNA RESP QL JASPER+PROBE Not detected [facility] This lab was ordered by [employer] Employee Cov id and reported by Hunie [place]. ID Date Data Source [id number] 09/10/2021 07:00:00 AM EDT [facility] Name Value Range Interpretation Code Description Data Shaye rce(s) Supporting Document(s) SARS coronavirus 2 RNA [Presence] in Res piratory specimen by JASPER with probe detection Not detected [facility] This lab was ordered by [facility] and re ported by [facility]. ID Date Data Source [id number] 09/10/2021 12:00:00 AM EDT [facility] Name Value Range Interpretation Code Description Data Shaye rce(s) Supporting Document(s) SARS-COV-2 RNA RESP QL JASPER+PROBE Not detected [facility] This lab was ordered by [facility] [employer] Employee Cov id and reported by Hunie [place]. ID Date Data Source [id number] 09/12/2021 12:56:00 PM EDT [facility] Name Value Range Interpretation Code Description Data Shaye rce(s) Supporting Document(s) [id number] NOT DETECTED [facility] A Not Detected [...] findings,re- testing should be considered [facility]. Laboratory test results shouldalways [...] care pr oviders andpatients using the following websites:[facility] [employer]/home/Covid-19/HCP/vj-asof-hgww-gfseq7LijipNytniytu ics.[employer]/home/Covid-19/Patients/jf-gowd-hnhy-xifcg9Kxcy test has been authorized by the FDA under anEmergency Use Authorization (EUA) for use by authorizedlaboratories.Methodology: Nucleic Acid Amplification Test (NAAT)includes RT-PCR or TMA ID Date Data Source [id number] 08/21/2021 05:45:00 PM EDT [facility] Name Value Range Interpretation Code Description Data Shaye rce(s) Supporting Document(s) SARS-CoV-2 RNA Resp Ql JASPER+probe NOT DETECTED [facility] This lab was ordered by SAGRARIO haskins and reported by SAGRARIO Walker. ID Date Data Source [id number] 12/27/2020 12:00:00 AM EST [facility] Name Value Range Interpretation Code Description Data Shaye rce(s) Supporting Document(s) SARS coronavirus 2 RNA [Presence] in Res piratory specimen by JASPER with probe detection NEGATIVE [facility] This lab was ordered by Aaron Cobb and reported by [employer]. ID Date Data Source [id number] 12/27/2020 12:00:00 AM EST [facility] Name Value Range Interpretation Code Description Data Shaye rce(s) Supporting Document(s) Carestart Rapid COVID Antigen Test Negative [facility] This lab was reported by Aaron [place]. Procedure Social History Code Duration Value Status Description Data Source(s ) Smoking 09/06/2021 12:00:00 AM EDT Never Smoker completed Never S moker eCW1 ([facility]) Smoking 05/03/2021 12:00:00 AM EDT Never Smoker completed Never S moker eCW1 ([facility]) Smoking 05/03/2021 12:00:00 AM EDT Never Smoker completed Never S moker eCW1 ([facility]) Smoking 03/09/2021 12:00:00 AM EDT Never Smoker completed Never S moker eCW1 ([facility]) Smoking 03/09/2021 12:00:00 AM EDT Never Smoker completed Never S moker eCW1 ([facility]) Smoking 12/15/2020 12:00:00 AM EST Never Smoker completed Never S moker eCW1 ([facility]) Smoking 09/02/2020 12:00:00 AM EDT Never Smoker completed Never S moker eCW1 ([facility]) Vital Signs ID Date Data Source [id number] Name Value Range Interpretation Code Description Data Source(s) Body weight 250 [lb_av] 250 [lb_av] eCW1 ([facility]) Body height 69 [in_i] 69 [in_i] eCW1 ([facility]) Body mass index (BMI) [Ratio] 36.91 kg/m2 36.91 kg/m2 eCW1 ([facility]) Heart rate 65 /min 65 /min eCW1 ([facility]) Respiratory rate 18 /min 18 /min eCW1 ([facility]) Body temperature 97.0 [degF] 97.0 [degF] eCW1 ( [facility]) Systolic blood pressure 133 mm[Hg] 133 mm[Hg] e CW1 ([facility]) Diastolic blood pressure 65 mm[Hg] 65 mm[Hg] eCW1 ([facility]) Body mass index (BMI) [Ratio] 37.65 kg/m2 37.65 kg/m2 eCW1 ([facility]) Body weight 255 [lb_av] 255 [lb_av] eCW1 ([facility]) Body height 69 [in_i] 69 [in_i] eCW1 ([facility]) Heart rate 83 /min 83 /min eCW1 ([facility]) Respiratory rate 17 /min 17 /min eCW1 ([facility]) Body temperature 97.9 [degF] 97.9 [degF] eCW1 ( [facility]) Systolic blood pressure 121 mm[Hg] 121 mm[Hg] e CW1 ([facility]) Diastolic blood pressure 81 mm[Hg] 81 mm[Hg] eCW1 ([facility]) Body weight 269 [lb_av] 269 [lb_av] eCW1 ([facility]) Body height 69 [in_i] 69 [in_i] eCW1 ([facility]) Body mass index (BMI) [Ratio] 39.72 kg/m2 39.72 kg/m2 eCW1 ([facility]) Heart rate 76 /min 76 /min eCW1 ([facility]) Respiratory rate 16 /min 16 /min eCW1 ([facility]) Body temperature 97.5 [degF] 97.5 [degF] eCW1 ( [facility]) Systolic blood pressure 148 mm[Hg] 148 mm[Hg] e CW1 ([facility]) Diastolic blood pressure 77 mm[Hg] 77 mm[Hg] eCW1 ([facility]) Body weight 245 [lb_av] 245 [lb_av] eCW1 ([facility]) Body height 69 [in_i] 69 [in_i] eCW1 ([facility]) Body mass index (BMI) [Ratio] 36.18 kg/m2 36.18 kg/m2 eCW1 ([facility]) Heart rate 91 /min 91 /min eCW1 ([facility]) Respiratory rate 18 /min 18 /min eCW1 ([facility]) Body temperature 97.6 [degF] 97.6 [degF] eCW1 ( [facility]) Systolic blood pressure 133 mm[Hg] 133 mm[Hg] e CW1 ([facility]) Diastolic blood pressure 81 mm[Hg] 81 mm[Hg] eCW1 ([facility])
== END 2021-09-26 00:23 | disposition left against medical advice (07) ==
LOC: M ED 20:49
DX: Z53.20 Procedure and treatment not carried out because of patient's decision for unspecified reasons (principal)

== ENCOUNTER → 2021-11-09 | Outpatient (CLI) | payer BC, OTHER ==
--- NOTE | 2021-11-10 15:49 | SLEEPCENT ---
DATE: 11/09/2021 ORDERED BY: JANIYA Martines Nocturnal polysomnography was performed for evaluation of sleep physiology in this patient with a history of snoring and irregular breathing in sleep. Eight hours and 33 minutes of data were reviewed. There were 435 minutes of sleep identified. Sleep latency was prolonged at 47.5 minutes. REM latency was normal at 64 minutes. Sleep architecture showed some fragmentation. There were four REM cycles noted. Overall sleep efficiency was 85.6%. The electrocardiogram showed a sinus rhythm with an average heart rate of 68 beats per minute. EEG showed reasonably normal waveforms for wake and sleep. There were 274 respiratory events identified of 10 seconds in duration or greater for an apnea-hypopnea index of 37.8. The events were primarily obstructive, and 54 mixed and central apneas were also noted. Respiratory events were not exclusive to sleep stage nor body position. Arousals from respiratory events occurred 1.9 times per hour, and oxygen desaturations were seen into the 80s. There was activity noted in the limb EMG leads, but limb movement arousal index was only 2.3. IMPRESSION: Obstructive sleep apnea syndrome (G47.33). Apnea-hypopnea index 37.8. RECOMMENDATION: The patient should be encouraged to return to [facility] for [facility]. In the interim, alcohol and sedative avoidance should be practiced and caution exercised during the operation of motor vehicles. cc: SLIM EDUARDO DO
== END ==
LOC: M SLEEP 20:00
PROVIDERS: ATTEND Physician Assistant
DX: R06.83 Snoring (principal)

== ENCOUNTER → 2022-02-12 | Outpatient (CLI) | payer BC, OTHER | LOC: M SLEEP 20:00 | PROVIDERS: ATTEND Physician Assistant | DX: G47.33 Obstructive sleep apnea (adult) (pediatric) (principal) ==

== ENCOUNTER 2022-03-08 05:27 | Emergency (ER) | payer BC, OTHER ==
[~2022-03-08] VITALS: Ht 175.3 cm; Wt 120.5 kg
[2022-03-08] MEDS ORDERED: KETOROLAC 30 MG/ML 1ML VIAL IV ONE (06:20)
[2022-03-08] MEDS ORDERED: NS 1,000 ML IV ONE (06:20)
[2022-03-08 06:37] LABS: BASO # 0.1 10^3/uL (0.0-0.2); BASO % 0.5 % (0.0-1.0); EOS # 0.2 10^3/uL (0.0-0.5); EOS % 1.6 % (0.0-3.0); HEMATOCRIT 46.8 % (42.0-52.0); HEMOGLOBIN 16.4 g/dl (13.5-17.5); LYMPH # 2.3 10^3/uL (1.5-5.0); MEAN CORPUSCULAR HEMOGLOBIN 31.6 pg (27.0-33.0); MEAN CORPUSCULAR VOLUME 90.2 fl (80.0-96.0); MONO # 0.7 10^3/uL (0.0-0.8); MONO % 6.2 % (2.0-8.0); NEUTROPHILS # 7.8 10^3/uL (1.5-8.5); NEUTROPHILS % 70.4 % (36.0-66.0); PLATELET COUNT, AUTOMATED 203 10^3/uL (150-450); RED BLOOD COUNT 5.19 10^6/uL (4.30-6.10)
[2022-03-08 07:16] LABS: ALBUMIN 4.1 GM/DL (3.2-5.2); ALT/SGPT 96 U/L (12-78); BILIRUBIN,DIRECT 0.1 MG/DL (0.0-0.2); BILIRUBIN,TOTAL 0.6 MG/DL (0.2-1.0); BLOOD UREA NITROGEN 14 MG/DL (7-18); CALCIUM LEVEL 9.1 MG/DL (8.5-10.1); CARBON DIOXIDE LEVEL 29 MEQ/L (21-32); CHLORIDE LEVEL 106 MEQ/L (98-107); CREATININE FOR GFR 1.16 MG/DL (0.70-1.30); GLOMERULAR FILTRATION RATE > 60.0 (>60); GLUCOSE, FASTING 150 MG/DL (70-100); LIPASE 67 U/L (73-393); POTASSIUM SERUM 4.1 MEQ/L (3.5-5.1); SODIUM LEVEL 139 MEQ/L (136-145); TOTAL PROTEIN 7.3 GM/DL (6.4-8.2)
[2022-03-08] MEDS ORDERED: NS 2,610 ML in IV 1 EA IV ONE (07:35)
[2022-03-08] MEDS ORDERED: cefTRIAXone SOD 2 GM in D5W MINI-BAG PLUS 50 ML IV ONE (07:35)
[2022-03-08] MEDS ORDERED: ONDANSETRON 4MG/2ML VIAL As Ordered ONE (08:12)
[2022-03-08] MEDS ORDERED: ONDANSETRON 4MG/2ML VIAL IV ONE (08:15)
[2022-03-08] MEDS ORDERED: ISOVUE-370 76% 100ML VIAL As Ordered ONE (08:25)
[2022-03-08 08:55] LABS: RSV AMPLIFICATION NEGATIVE (NEGATIVE)
[2022-03-08] MEDS ORDERED: TAMSULOSIN 0.4 MG CAP PO ONE (09:30)
[2022-03-08] MEDS ORDERED: PERCOCET 5MG/325MG TAB PO ONE (09:35)
[2022-03-08] MEDS ORDERED: PERC5TAB12 PO (10:53)
[2022-03-08] MEDS ORDERED: KETO10TAB PO (10:53)
[2022-03-08] MEDS ORDERED: CEFD300C41 PO (10:53)
[2022-03-08] MEDS ORDERED: ONDA4TAB6 PO (10:53)
[2022-03-08 11:15] VITALS: BP 123/64
== END 2022-03-08 11:31 | disposition home or self-care (01) ==
LOC: M ED 05:27 → EDBD 05:27 → M ED 11:31
DX: N20.1 Calculus of ureter (principal); M54.50 Low back pain, unspecified; F32.A Depression, unspecified; Z88.1 Allergy status to other antibiotic agents; Z88.2 Allergy status to sulfonamides; Z79.899 Other long term (current) drug therapy
CPT/HCPCS: 74177; 80048; 80076; 81001; 83605; 83690; 85025; 87040; 87631; 93041; 96365; 96366; 96375; 99284; J0696; J1885; J2405; Q9967

== ENCOUNTER → 2022-03-10 | Outpatient (REF) | payer BC, OTHER ==
[~2022-03-10] MED LIST changes: +CEFD300C41 PO; +KETO10TAB PO; +ONDA4TAB6 PO; +PERC5TAB12 PO
== END ==
LOC: M SMT 13:07
PROVIDERS: ATTEND Physician Assistant
DX: N20.1 Calculus of ureter (principal)

== ENCOUNTER → 2025-01-16 | Outpatient (REF) | payer OTHER ==
[~2025-01-16] MED LIST changes: +CEFD1CAP9 PO; -CEFD300C41 PO; +ONDA-282 PO; -ONDA4TAB6 PO
== END ==
LOC: M LAB REF 16:26
PROVIDERS: ATTEND Physician Assistant
DX: B34.9 Viral infection, unspecified (principal)

== ENCOUNTER → 2025-02-13 | Outpatient (CLI) | payer OTHER, BC ==
[2025-02-13 14:36] LABS: BASO % 0.4 % (0.0-1.0); EOS # 0.2 10^3/uL (0.0-0.5); EOS % 2.7 % (0.0-3.0); HEMATOCRIT 46.6 % (42.0-52.0); HEMOGLOBIN 16.1 g/dl (13.5-17.5); LYMPH # 2.3 10^3/uL (1.5-5.0); LYMPH % 30.5 % (24.0-44.0); MEAN CORPUSCULAR HEMOGLOBIN 31.7 pg (27.0-33.0); MEAN CORPUSCULAR HGB CONC 34.5 g/dl (32.0-36.5); MEAN CORPUSCULAR VOLUME 91.7 fl (80.0-96.0); MONO # 0.7 10^3/uL (0.0-0.8); MONO % 8.6 % (2.0-8.0); NEUTROPHILS # 4.3 10^3/uL (1.5-8.5); NEUTROPHILS % 57.4 % (36.0-66.0); PLATELET COUNT, AUTOMATED 191 10^3/uL (150-450); RED BLOOD COUNT 5.08 10^6/uL (4.30-6.10); WHITE BLOOD COUNT 7.5 10^3/uL (4.0-10.0)
[2025-02-13 15:05] LABS: ALKALINE PHOSPHATASE 61 U/L (40-129); ALT/SGPT 153 U/L (7.0-40); AST/SGOT 67 U/L (<34); BILIRUBIN,TOTAL 0.6 MG/DL (0.3-1.2); BLOOD UREA NITROGEN 12 MG/DL (9-23); CALCIUM LEVEL 9.3 MG/DL (8.5-10.1); CARBON DIOXIDE LEVEL 28 MMOL/L (20-31); CHLORIDE LEVEL 106 MMOL/L (98-107); CHOLESTEROL LEVEL 192 MG/DL (<200); CHOLESTEROL RISK RATIO 3.84 (<5); CREATININE FOR GFR 0.91 MG/DL (0.70-1.30); GLOMERULAR FILTRATION RATE > 60.0 (>60); GLUCOSE, FASTING 87 MG/DL (60-100); HDL CHOLESTEROL 49.9 MG/DL (>40); LDL CHOLESTEROL 115.1 MG/DL (<100); NON-HDL-C 142.1 MG/DL; POTASSIUM SERUM 4.2 MMOL/L (3.5-5.1); SODIUM LEVEL 139 MMOL/L (136-145); TOTAL PROTEIN 7.3 G/DL (5.7-8.2); TRIGLYCERIDES LEVEL 135 MG/DL (<150)
[2025-02-13 15:08] LABS: THYROID STIMULATING HORMONE 0.956 uIU/ML (0.55-4.78); TOTAL 25(OH) VITAMIN D 24.3 NG/ML (20.0-100.0)
[2025-02-13 15:09] LABS: FREE T4 1.38 NG/DL (0.89-1.76)
[2025-02-13 15:34] LABS: HIV 1&2 SCREEN NEGATIVE (NEGATIVE)
[2025-02-13 15:41] LABS: HEPATITIS C VIRUS ABY INDEX 0.03 INDEX (<0.8)
[2025-02-13 15:55] LABS: Trichomonas vaginalis (AMP) NOT DETECTED (NEGATIVE)
[2025-02-13 16:19] LABS: GC DNA AMPLIFICATION NEGATIVE (NEGATIVE)
== END ==
LOC: M PLALAB 09:53
PROVIDERS: ATTEND Nurse Practitioner Family
DX: Z00.00 Encounter for general adult medical examination without abnormal findings (principal); Z11.3 Encounter for screening for infections with a predominantly sexual mode of transmission

== ENCOUNTER 2025-03-10 15:25 | Emergency (ER) | payer OTHER, BC ==
[~2025-03-10] VITALS: Ht 175.3 cm; Wt 129.6 kg
[2025-03-10] MEDS ORDERED: IBUP-1022 PO (17:25)
[2025-03-10 17:29] VITALS: BP 139/74; TEMP 97.6; O2SAT 97
== END 2025-03-10 17:36 | disposition home or self-care (01) ==
LOC: M ED 15:25
DX: S93.402A Sprain of unspecified ligament of left ankle, initial encounter (principal); W01.0XXA Fall on same level from slipping, tripping and stumbling without subsequent striking against object, initial encounter; Y93.89 Activity, other specified; Y92.89 Other specified places as the place of occurrence of the external cause; Y99.8 Other external cause status; Z79.1 Long term (current) use of non-steroidal anti-inflammatories (NSAID); Z88.2 Allergy status to sulfonamides; Z88.1 Allergy status to other antibiotic agents